=== PATIENT | female | born 1970 | race Caucasian/White ===

== ENCOUNTER 2022-07-06 08:04 | Emergency (ER) | payer OTHER, SELFPAY ==
[2022-07-06] VITALS (26 sets, daily range): BP systolic 127–154; BP diastolic 76–101; PULSE 58–72; RESP 18; TEMP 36.7; O2SAT 94–100; BMI 32.6
--- NOTE | 2022-07-06 08:46 | ED.CHESTPAIN ---
HPI - Chest Pain General Chief Complaint: Chest Pain Stated Complaint: Chest pain Time Seen by Provider: 07/06/22 08:43 History of Present Illness HPI narrative: This 51-year-old female comes in reporting chest pain that began at 6:00 p.m. last evening, 15 hours ago. She states that the pain is been constant and seems to be worse this morning. The pain is located along her sternum. It is not reproducible with deep breathing or certain movements. She states that she had some nausea last evening and the chest pain began. She did take a Zofran without any relief. She states that she has had some associated shortness of breath and lightheadedness when walking in to work. She works at this facility. She was tested last evening for COVID, influenza, and RSV and these returned negative. She does not report any cough. She states that she has good exercise tolerance and works out pretty much every day. She does have family history of heart disease and states that her calcium score of a heart scan was elevated in the left vasculature. The score was 12. She has not had any diaphoresis. Related Data Home Medications Medication Instructions Recorded Confirmed aspirin 81 mg chewable tablet 81 mg PO QDAY 02/28/22 (Aspirin Childrens) fexofenadine 180 mg tablet 180 mg PO QDAY 02/28/22 07/06/22 multivitamin 1 tab PO QDAY 02/28/22 ondansetron HCl 4 mg tablet 4 mg PO Q6H PRN 02/28/22 aspirin 81 mg tablet,delayed 81 mg PO QDAY 05/03/22 07/06/22 release fexofenadine 60 mg tablet (Mckenna 60 mg PO BID 05/03/22 05/03/22 Allergy) triamterene 37.5 1 tab PO 05/03/22 05/03/22 mg-hydrochlorothiazide 25 mg tablet Previous Rx's Medication Instructions Recorded lisinopril 10 mg tablet 10 mg PO QDAY #30 tabs 03/28/22 triamterene 37.5 2 cap PO QDAY #180 caps 07/02/22 mg-hydrochlorothiazide 25 mg capsule Allergies Allergy/AdvReac Type Severity Reaction Status Date / Time No Known Allergies Allergy Unverified 02/26/22 10:52 Review of Systems Status of ROS Reports: 10 or more systems reviewed and unremarkable except as noted in History and below Narrative Constitutional: No fevers, no weight gain or loss. Eyes: No discharge. No vision changes. HENT: No congestion, no sore throat, no ear pain. Cardiovascular: No palpitations. Chest pain as described above. Respiratory: No shortness of breath, no wheezes, no cough. Gastrointestinal: No abdominal pain, no vomiting, no diarrhea. She did have some nausea. Genitourinary: No dysuria, no hematuria. Musculoskeletal: Normal range of motion. Skin: No rashes, no pruritis. Neurological: No dizziness, weakness, sensory change, speech change. Endo/Heme/Allergies: No bruising or bleeding. No polydipsia. Pysch: no suicidality, no anxiety, no insomnia. All other systems reviewed and are negative. [facility] Medical History (Updated 07/06/22 @ 13:19 by Jerry Marshall MD) Encounter for annual physical exam Social History Smoking Status: Former smoker How often do you have a drink containing alcohol: monthly or less How often do you have six or more drinks on one occasion: Never AUDIT-C Alcohol total score: 1 Non-prescribed substance use: denies use Exam Narrative Exam Narrative: Constitutional: Well-developed, well-nourished, no acute distress. HEENT: Normocephalic, atraumatic. Neck: Normal range of motion. Nontender. Supple. Heart: Regular. No murmurs. Normal rate. Intact distal pulses. Lungs: Clear to auscultation. No wheezes, rhonchi, or rales. Chest: Chest discomfort along the sternum that is not reproducible with palpation or deep breathing. She rates that at 7/10 in severity. Abdomen: Normal bowel sounds. Nontender. No rebound tenderness. Genitalia: Deferred. Back: No midline tenderness. Normal range of motion. Extremities: Normal range of motion. No injury. Skin: Intact. No rash. Warm. No erythema or pallor. Neurologic: No altered sensation. No weakness. Alert and oriented. Psychiatric: No suicidality. No anxiety or depression. No insomnia. Nursing notes and vitals signs are reviewed. Const Vital Signs, click to edit/add: Vital Signs - 24 hr 07/06/22 08:18 07/06/22 08:20 07/06/22 08:22 Temperature 98.1 F Pulse Rate 67 70 Pulse Rate [Pulse Oximeter] 69 Respiratory Rate 18 Blood Pressure 154/97 H Blood Pressure [Right Upper Arm] 154/97 H Pulse Oximetry 99 100 99 Oxygen Delivery Method Room Air 07/06/22 08:30 07/06/22 08:32 07/06/22 09:00 Temperature Pulse Rate 68 65 65 Pulse Rate [Pulse Oximeter] Respiratory Rate Blood Pressure 135/92 H Blood Pressure [Right Upper Arm] Pulse Oximetry 99 100 98 Oxygen Delivery Method 07/06/22 09:02 07/06/22 09:03 07/06/22 09:30 Temperature Pulse Rate 64 71 63 Pulse Rate [Pulse Oximeter] Respiratory Rate Blood Pressure 148/101 H Blood Pressure [Right Upper Arm] Pulse Oximetry 98 98 96 Oxygen Delivery Method 07/06/22 09:32 07/06/22 10:00 07/06/22 10:02 Temperature Pulse Rate 65 60 58 L Pulse Rate [Pulse Oximeter] Respiratory Rate Blood Pressure 153/95 H 149/77 H Blood Pressure [Right Upper Arm] Pulse Oximetry 98 99 97 Oxygen Delivery Method 07/06/22 10:30 07/06/22 10:32 07/06/22 10:33 Temperature Pulse Rate 63 67 70 Pulse Rate [Pulse Oximeter] Respiratory Rate Blood Pressure 141/76 H Blood Pressure [Right Upper Arm] Pulse Oximetry 96 99 97 Oxygen Delivery Method 07/06/22 11:00 07/06/22 11:02 07/06/22 11:30 Temperature Pulse Rate 71 65 58 L Pulse Rate [Pulse Oximeter] Respiratory Rate Blood Pressure 127/92 H Blood Pressure [Right Upper Arm] Pulse Oximetry 94 95 98 Oxygen Delivery Method 07/06/22 11:32 07/06/22 11:33 07/06/22 12:02 Temperature Pulse Rate 61 65 Pulse Rate [Pulse Oximeter] Respiratory Rate Blood Pressure 131/97 H 150/81 H Blood Pressure [Right Upper Arm] Pulse Oximetry 97 95 Oxygen Delivery Method 07/06/22 12:03 07/06/22 12:30 07/06/22 12:32 Temperature Pulse Rate 58 L 72 64 Pulse Rate [Pulse Oximeter] Respiratory Rate Blood Pressure 147/93 H Blood Pressure [Right Upper Arm] Pulse Oximetry 98 99 97 Oxygen Delivery Method 07/06/22 13:00 07/06/22 13:02 Temperature Pulse Rate 67 68 Pulse Rate [Pulse Oximeter] Respiratory Rate Blood Pressure 149/98 H Blood Pressure [Right Upper Arm] Pulse Oximetry 99 99 Oxygen Delivery Method Course Vital Signs Vital signs: Initial Vital Signs Temperature 98.1 F 07/06/22 08:18 Temperature Source Temporal Artery Scan 07/06/22 08:18 Pulse Rate 69 07/06/22 08:18 Respiratory Rate 18 07/06/22 08:18 Blood Pressure 154/97 H 07/06/22 08:18 Blood Pressure Mean 116 07/06/22 08:18 Blood Pressure Position Supine 07/06/22 08:18 Pulse Oximetry 99 07/06/22 08:18 Oxygen Delivery Method 07/06/22 08:18 Vital Signs Temperature 98.1 F 07/06/22 08:18 Pulse Rate 69 07/06/22 08:18 Respiratory Rate 18 07/06/22 08:18 Blood Pressure 154/97 H 07/06/22 08:18 Pulse Oximetry 99 07/06/22 08:18 Oxygen Delivery Method 07/06/22 08:18 Temperature 98.1 F 07/06/22 08:18 Pulse Rate 68 07/06/22 13:02 Respiratory Rate 18 07/06/22 08:18 Blood Pressure 149/98 H 07/06/22 13:02 Pulse Oximetry 99 07/06/22 13:02 Oxygen Delivery Method 07/06/22 08:18 MDM - Chest Pain MDM Narrative Medical decision making narrative: This patient comes in with chest symptoms as described above. Her EKG and labs returned with reassuring findings. Her troponin is within normal range. A CT scan of the chest, abdomen, and pelvis with contrast is ordered and rules out dissection, pulmonary embolism, or other abnormalities. Patient is reassured with these results. She states that she does take Tums on occasion for heartburn symptoms. She does also have Prilosec at home but has not taken this. I did advise her to use this as directed. Lab Data Labs: Lab Results 07/06/22 07/06/22 07/06/22 Range/Units 08:59 09:08 09:08 WBC 7.48 (4.50-11.00) K/uL RBC 4.44 (4.00-5.20) m/uL Hgb 12.8 (12.0-16.0) gm/dL Hct 38.6 (33.0-51.0) % MCV 87 (80-100) fL MCH 29 (26-34) pg MCHC 33 (32-36) gm/dL RDW Coeff of Josep 13.1 (11.5-15.5) % Plt Count 294 (140-440) K/uL Neut % (Auto) 65.5 (42.0-72.0) % Lymph % (Auto) 25.7 (20-44) % Gosper % (Auto) 5.2 (0.0-11.0) % Eos % (Auto) 3.5 (0.0-7.0) % Baso % (Auto) 0.1 (0.0-3.0) % Neut # (Auto) 4.90 (1.7-7.0) K/uL Lymph # (Auto) 1.92 (0.90-2.90) K/uL Gosper # (Auto) 0.40 (0.00-0.90) K/UL Eos # (Auto) 0.26 (0.00-0.50) K/uL Baso # (Auto) 0.01 (0.00-0.30) K/uL Abs Immat Gran (auto) 0.00 (0.00-0.30) K/uL Imm/Tot Granulo (auto) 0.0 % ESR 28 H (2-20) mm/hr Sodium (135-149) mmol/L Potassium (3.6-5.1) mmol/L Chloride (96-114) mmol/L Carbon Dioxide (20-32) mmol/L BUN (7-30) mg/dL Creatinine (0.5-1.5) mg/dL Estimated Creat Clear Estimated GFR ml/min Glucose (60-115) mg/dL Calcium (8.4-10.6) mg/dL POC Troponin I 0.01 (0.01-0.04) ng/ml 07/06/22 Range/Units 09:08 WBC (4.50-11.00) K/uL RBC (4.00-5.20) m/uL Hgb (12.0-16.0) gm/dL Hct (33.0-51.0) % MCV (80-100) fL MCH (26-34) pg MCHC (32-36) gm/dL RDW Coeff of Josep (11.5-15.5) % Plt Count (140-440) K/uL Neut % (Auto) (42.0-72.0) % Lymph % (Auto) (20-44) % Gosper % (Auto) (0.0-11.0) % Eos % (Auto) (0.0-7.0) % Baso % (Auto) (0.0-3.0) % Neut # (Auto) (1.7-7.0) K/uL Lymph # (Auto) (0.90-2.90) K/uL Gosper # (Auto) (0.00-0.90) K/UL Eos # (Auto) (0.00-0.50) K/uL Baso # (Auto) (0.00-0.30) K/uL Abs Immat Gran (auto) (0.00-0.30) K/uL Imm/Tot Granulo (auto) % ESR (2-20) mm/hr Sodium 139 (135-149) mmol/L Potassium 3.9 (3.6-5.1) mmol/L Chloride 101 (96-114) mmol/L Carbon Dioxide 32 (20-32) mmol/L BUN 26 (7-30) mg/dL Creatinine 1.2 (0.5-1.5) mg/dL Estimated Creat Clear 47.89 Estimated GFR 55 ml/min Glucose 97 (60-115) mg/dL Calcium 9.6 (8.4-10.6) mg/dL POC Troponin I (0.01-0.04) ng/ml Imaging Data CT Chest, Abd, Pelvis: Radiologist's impression: 1. No aortic dissection or aortic aneurysm. 2. Normal caliber main pulmonary artery without central PE. 3. No cause of chest pain identified. ECG Data Attestation: I personally reviewed and interpreted this ECG as follows: Interpretation: Normal sinus rhythm. Rate is 72 beats per minute. There are no ST or T-wave abnormalities. Discharge Plan Discharge Clinical Impression: Atypical chest pain Patient Disposition: Home, Self-Care Condition: Improved Additional Instructions: Use [id number] medicines as needed and directed. Take Prilosec for symptomatic relief. Follow up with MD or return if worsening. Prescriptions: No Action aspirin 81 mg tablet,delayed release (DR/EC) 81 mg PO QDAY fexofenadine [Mckenna Allergy] 60 mg tablet 60 mg PO BID triamterene-hydrochlorothiazid 37.5-25 mg tablet 1 tab PO Label Comments: TAKE 2 TABLETS BY MOUTH EVERY DAY fexofenadine 180 mg tablet 180 mg PO QDAY multivitamin Tablet 1 tab PO QDAY aspirin [Aspirin Childrens] 81 mg tablet,chewable 81 mg PO QDAY ondansetron HCl 4 mg tablet 4 mg PO Q6H PRN lisinopril 10 mg tablet 10 mg PO QDAY Qty: 30 1RF triamterene-hydrochlorothiazid 37.5-25 mg capsule 2 cap PO QDAY Qty: 180 0RF Follow Up/Referrals: Teja Willard MD [Primary Care Provider] - Stand Alone Forms: [facility] Info Instructions
--- NOTE | 2022-07-06 08:58 | CRLHL7_ITS ---
For Patients: As a result of the 21st Century Cures Act, medical imaging exams and procedure reports are released immediately into your electronic medical record. You may view this report before your referring provider. If you have questions, please contact your health care provider. Examination: CTA chest/abdomen/pelvis Indication: Chest pain radiating to back. Technique: Dissection protocol CT with noncontrast chest CT and arterial phase chest abdomen/pelvis CT. 95 mL of Isovue 370. Coronal and sagittal reformations. DLP = 1554 mGy centimeter. Comparison: None available Findings: Vascular: No intramural hematoma. Normal course and caliber of the thoracic aorta. Three vessel aortic arch. No atherosclerosis. Normal caliber main pulmonary artery. This study is not protocol to evaluate for PE, but there is no large central PE identified. Normal heart size. No coronary artery calcifications. Celiac trunk, SMA, bilateral renal arteries, and HAYES widely patent. Abdominal aorta demonstrates no aneurysm and minimal atherosclerosis. Common, internal common external iliac arteries are widely patent. Nonvascular: Mediastinum: No pericardial effusion. Normal esophagus. No mediastinal adenopathy. Lungs: Central airways patent. Pleural spaces clear. No pulmonary opacities. No pulmonary nodules. Other chest: No axillary or supraclavicular adenopathy. Visualized portions of thyroid normal. Arterial phase of enhancement limits evaluation of solid abdominal organs. Liver: Normal. Gallbladder: Normal. Spleen: Normal. Pancreas: Normal. Adrenal glands: Normal. Kidneys: No hydronephrosis. No enhancing renal mass. Bowel: No obstruction or ileus. No wall thickening. Normal appendix. No free air or free fluid. Lymph nodes: No adenopathy. Pelvis: Urinary bladder is unremarkable. Uterus and ovaries unremarkable. Bones: No acute or aggressive appearing osseous lesions. Impression: 1. No aortic dissection or aortic aneurysm. 2. Normal caliber main pulmonary artery without central PE. 3. No cause of chest pain identified. Please note that all CT scans at this facility use dose modulation, iterative reconstruction, and/or weight-based dosing when appropriate to reduce radiation dose to as low as reasonably achievable. Dictated by Cuauhtemoc Ferro MD @ 07/06/2022 12:32:14 PM (Electronically Signed)
[2022-07-06 09:18] LABS: Basophils Absolute Auto 0.01 K/uL (0.00-0.30); Basophils Percent Auto 0.1 % (0.0-3.0); Eosinophils Absolute Auto 0.26 K/uL (0.00-0.50); Eosinophils Percent Auto 3.5 % (0.0-7.0); Hematocrit 38.6 % (33.0-51.0); Hemoglobin* 12.8 gm/dL (12.0-16.0); Lymphocytes Absolute Auto 1.92 K/uL (0.90-2.90); Lymphocytes Percent Auto 25.7 % (20-44); Mean Corpuscular HGB Conc 33 gm/dL (32-36); Mean Corpuscular Hemoglobin 29 pg (26-34); Mean Corpuscular Volume 87 fL (80-100); Monocytes Percent Auto 5.2 % (0.0-11.0); Neutrophils Percent Auto 65.5 % (42.0-72.0); Platelet Count* 294 K/uL (140-440); RDW Coefficient of Variation % 13.1 % (11.5-15.5); Red Blood Count 4.44 m/uL (4.00-5.20); White Blood Count* 7.48 K/uL (4.50-11.00)
[2022-07-06 09:22] LABS: Slide Review Reflex No
[2022-07-06 09:22] LABS: Troponin, Point-of-Care* 0.01 ng/ml (0.01-0.04)
[2022-07-06 09:30] LABS: Chloride* 101 mmol/L (96-114); Potassium* 3.9 mmol/L (3.6-5.1); Sodium* 139 mmol/L (135-149)
[2022-07-06] MEDS: ONDANSETRON 2 MG/ML inj 4 MG IVP (09:30)
[2022-07-06 09:33] LABS: Carbon Dioxide* 32 mmol/L (20-32); Creatinine* 1.2 mg/dL (0.5-1.5); Est. Creatinine Clearance* 47.89; Estimated Glomerular Filt Rate 55 ml/min
[2022-07-06 09:34] LABS: Blood Urea Nitrogen* 26 mg/dL (7-30); Calcium* 9.6 mg/dL (8.4-10.6); Glucose* 97 mg/dL (60-115)
[2022-07-06 10:30] LABS: Erythrocyte SedimentationRate* 28 mm/hr (2-20)
== END 2022-07-06 13:25 | disposition home or self-care (01) ==
PROVIDERS: Emergency Provider Emergency Medicine Emergency Medical Services; PCP Family Medicine
DX: R07.9 Chest pain, unspecified (principal)
CPT/HCPCS: 36415; 71270; 74177; 80048; 84484; 85025; 85651; 93005; 96374; 99285; J2405; Q9967

== ENCOUNTER 2022-10-09 14:27 | Outpatient (CLI) | payer OTHER, SELFPAY | END 2022-10-09 14:28 | disposition home or self-care (01) | LOC: LKVREF 14:31 | PROVIDERS: PCP Family Medicine; Visit Provider Family Medicine | DX: Z00.00 Encounter for general adult medical examination without abnormal findings (principal); I10 Essential (primary) hypertension; R93.1 Abnormal findings on diagnostic imaging of heart and coronary circulation | CPT/HCPCS: 84443 ==

== ENCOUNTER 2022-10-18 13:49 | Outpatient (CLI) | payer OTHER, SELFPAY ==
[2022-10-18 14:53] VITALS: BP 138/86; PULSE 99; RESP 18
[2022-10-18] MEDS: PERFLUTREN LIPID MICROSPHERES 2 ML VIAL IV (14:59)
--- NOTE | 2022-10-18 16:22 | W.PM.STED ---
Stress Test Note Date Time Seen by Provider: 14:45 Date Seen: 10/18/22 Date of test: 10/18/22 Providers Referring provider: Teja Willard Primary care provider: Teja Willard Stress test physician: Jodie Evans Stress Test Note Stress test ordered: Stress Echo Indication for test: Chest pain Stress test medicine: Definpresley Results discussion: Resting EKG: Sinus rhythm, 64 beats per minute. Resting blood pressure: 115/76 Stress test: Patient exercised on the treadmill following standard [place] protocol stress echo. She exercised to 10 minutes 47 seconds achieving 12.1 Mets. Maximum heart rate of 157 beats per minute was obtained which was 109% of a calculated target heart rate of 143. Maximal blood pressure during exercise was 144/80 giving a rate pressure product of 19,440. Definity was used for the echo images. There were no arrhythmias, no noted ischemic change. Patient had no chest pain. Stress test was terminated for patient having exercise-induced shortness of breath and meeting her heart rate requirements. Await echo images to couple this for a full formal diagnostic. Impression: Subjectively and objectively negative EKG portion of this stress test. Follow up suggested: Patient discharged home to await a final report from her primary care provider.
== END 2022-10-18 13:50 | disposition home or self-care (01) ==
LOC: STRESS 13:50
PROVIDERS: PCP Family Medicine; Visit Provider Family Medicine
DX: R07.89 Other chest pain (principal); I10 Essential (primary) hypertension; R93.1 Abnormal findings on diagnostic imaging of heart and coronary circulation
CPT/HCPCS: 93016; 93325; 93351; Q9957

== ENCOUNTER 2022-11-05 04:57 | Outpatient (CLI) | payer OTHER, SELFPAY ==
[2022-11-08 11:25] LABS: Chloride* 100 mmol/L (96-114); Potassium* 3.5 mmol/L (3.6-5.1); Sodium* 135 mmol/L (135-149)
[2022-11-08 11:28] LABS: Blood Urea Nitrogen* 28 mg/dL (7-30); Calcium* 9.3 mg/dL (8.4-10.6); Carbon Dioxide* 27 mmol/L (20-32); Creatinine* 1.2 mg/dL (0.5-1.5); Estimated Glomerular Filt Rate 54 ml/min; Glucose* 88 mg/dL (60-115)
== END 2022-11-05 04:58 | disposition home or self-care (01) ==
PROVIDERS: PCP Family Medicine; Visit Provider Family Medicine
DX: I10 Essential (primary) hypertension (principal); M54.9 Dorsalgia, unspecified
CPT/HCPCS: 36415; 80048

== ENCOUNTER 2022-12-04 13:58 | Outpatient (CLI) | payer OTHER, SELFPAY ==
--- NOTE | 2022-12-04 13:40 | CRLHL7_ITS ---
For Patients: As a result of the Cures Act, medical imaging exams and procedure reports are released immediately into your electronic medical record. You may view this report before your referring provider. If you have questions, please contact your health care provider. BILATERAL SCREENING MAMMOGRAM WITH COMPUTER-AIDED DETECTION AND TOMOSYNTHESIS TECHNIQUE: CC and MLO views were obtained. These mammographic images have been obtained using full-field digital technique. These mammographic images were interpreted with the benefit of computer-aided detection. Breast Tomosynthesis was used in this interpretation. COMPARISON FILM: 09/26/21, 10/02/21. FINDINGS: The breasts are heterogeneously dense, which may obscure small masses IMPRESSION: There is no radiographic evidence for malignancy. ASSESSMENT: BI-RADS Category 1: Negative RECOMMENDATION: Routine screening mammogram in 1 year. A lay language report of this examination will be provided to the patient. David Vernon M.D. Diagnostic Radiologist [email or web address] Transcribed: 1:19 p.mNick ritter/Dictated by: David Vernon MD @ 12/05/2022 11:52:00 AM (Electronically Signed)
== END 2022-12-04 13:59 | disposition home or self-care (01) ==
LOC: MAMMO 13:59
PROVIDERS: PCP Family Medicine; Visit Provider Family Medicine
DX: Z12.31 Encounter for screening mammogram for malignant neoplasm of breast (principal); R92.2 Inconclusive mammogram
CPT/HCPCS: 77063; 77067

== ENCOUNTER 2023-04-29 14:22 | Outpatient (CLI) | payer OTHER, SELFPAY | END 2023-04-29 14:23 | disposition home or self-care (01) | LOC: LKVREF 14:23 | PROVIDERS: PCP Family Medicine; Visit Provider Family Medicine | DX: Z00.00 Encounter for general adult medical examination without abnormal findings (principal); I10 Essential (primary) hypertension; R93.1 Abnormal findings on diagnostic imaging of heart and coronary circulation; E66.9 Obesity, unspecified; Z13.6 Encounter for screening for cardiovascular disorders | CPT/HCPCS: 80061 ==

== ENCOUNTER 2023-05-29 09:15 | Outpatient (RCR) | payer OTHER, SELFPAY | END 2023-09-26 23:59 | disposition home or self-care (01) | PROVIDERS: PCP Preventive Medicine Occupational Medicine; Visit Provider Nurse Practitioner Family | DX: H81.90 Unspecified disorder of vestibular function, unspecified ear (principal); R26.89 Other abnormalities of gait and mobility; Z51.89 Encounter for other specified aftercare | CPT/HCPCS: 97112; 97161; 97162 ==

== ENCOUNTER 2023-06-18 13:47 | Outpatient (CLI) | payer OTHER, SELFPAY | END 2023-06-18 13:48 | disposition home or self-care (01) | PROVIDERS: PCP Family Medicine; Visit Provider Otolaryngology | DX: Z11.9 Encounter for screening for infectious and parasitic diseases, unspecified (principal) | CPT/HCPCS: 85651; 86039; 86431; 86618 ==

== ENCOUNTER 2023-07-03 12:50 | Outpatient (CLI) | payer OTHER, SELFPAY ==
--- NOTE | 2023-07-03 13:00 | CRLHL7_ITS ---
For Patients: As a result of the Century Cures Act, medical imaging exams and procedure reports are released immediately into your electronic medical record. You may view this report before your referring provider. If you have questions, please contact your health care provider. INDICATION: Vertigo. Dizziness. TECHNIQUE: Multiplanar multisequence MR imaging acquired through the brain and internal auditory canals prior to and following intravenous contrast. COMPARISON: None. FINDINGS: The ventricles and sulci are within normal limits for patient age. No mass effect or midline shift. Few punctate FLAIR hyperintensities in the supratentorial white matter, nonspecific. No intracranial hemorrhage or pathologic extra-axial fluid collection. No diffusion restriction to suggest acute infarction. Elongated enhancement and FLAIR hyperintensity within the lateral left hemipons measuring up to 13 mm (series 12, image 11). No associated mass effect. Probable developmental venous anomaly within the superior right dorsal hemipons. Patchy and linear enhancement within the inferomedial right cerebellar hemisphere (series 10 image 9) may represent an additional developmental venous anomaly. No mass or pathologic enhancement within the internal auditory canals or cerebellopontine angles. No concerning signal abnormalities in the inner ear structures. No vascular loop within the internal auditory canals. The major arterial flow voids of the skullbase are preserved. The globes are symmetric. The paranasal sinuses are well aerated. The mastoid air cells are clear. IMPRESSION: 1. Small elongated enhancement in the lateral left hemipons is without associated mass effect or parenchymal edema and indeterminate. Differential considerations are broad, though include vascular, inflammatory/demyelinating, or neoplastic processes. An enhancing late subacute to chronic infarction could also have this appearance. Follow-up brain MRI within 3 months is recommended for reassessment. Sequences acquisition utilizing thin section volumetric postcontrast images would be helpful. 2. Probable developmental venous anomaly within the superior right dorsal hemipons. Patchy and linear enhancement within the inferomedial right cerebellar hemisphere may represent an additional developmental venous anomaly, and can be reassessed on follow-up exams. 3. No mass or pathologic enhancement within the internal auditory canals or cerebellopontine angles. Dictated by Jerome Montana MD @ 07/03/2023 7:18:10 PM (Electronically Signed)
== END 2023-07-03 12:51 | disposition home or self-care (01) ==
LOC: MRI 12:50
PROVIDERS: PCP Family Medicine; Visit Provider Otolaryngology
DX: R42 Dizziness and giddiness (principal); G93.9 Disorder of brain, unspecified
CPT/HCPCS: 70553; A9575

== ENCOUNTER 2023-10-07 16:42 | Outpatient (REF) | payer OTHER, SELFPAY ==
[2023-10-07 16:51] LABS: Partial Thromboplastin Time* 31 Seconds (23-33)
== END 2023-10-07 16:43 | disposition home or self-care (01) ==
LOC: NPLBINS 16:42
PROVIDERS: PCP Family Medicine; Visit Provider Psychiatry & Neurology Neurology
DX: Z00.00 Encounter for general adult medical examination without abnormal findings (principal); I10 Essential (primary) hypertension; E78.00 Pure hypercholesterolemia, unspecified; E66.9 Obesity, unspecified
CPT/HCPCS: 36415; 80053; 80061; 85730

== ENCOUNTER 2023-12-18 14:08 | Outpatient (CLI) | payer OTHER, SELFPAY ==
--- NOTE | 2023-12-18 14:00 | MM_ITS ---
Patient: MICHEAL GALICIA Facility:?[facility] Patient ID:?[id number] Site Patient ID:?[id number]. Site :?[id number] Study:?XRay-Breast Bilateral 3D W/CAD-12/18/2023 2:31:27 PM Ordering Physician:Teja Nugent Final Report: BILATERAL SCREENING MAMMOGRAM WITH COMPUTER-AIDED DETECTION AND TOMOSYNTHESIS TECHNIQUE: CC and MLO views were obtained. These mammographic images have been obtained using full-field digital technique. These mammographic images were interpreted with the benefit of computer-aided detection. Breast Tomosynthesis was used in this interpretation. COMPARISON FILM: 12/04/22, 10/02/21, 09/26/21. FINDINGS: There are scattered areas of fibroglandular density. IMPRESSION: There is no radiographic evidence for malignancy. ASSESSMENT: BI-RADS Category 1: Negative RECOMMENDATION: Routine screening mammogram in 1 year. A lay language report of this examination will be provided to the patient. David Vernon M.D. Diagnostic Radiologist [email or web address] DSM/sp R& Transcribed: 2:07 p.m. SP/Dictated by: David Vernon MD @ 12/19/2023 9:12:00 AM Signed by:?David Vernon MD @12/19/2023 3:10:43 PM (Electronic Signature)
== END 2023-12-18 14:09 | disposition home or self-care (01) ==
LOC: MAMMO 14:09
PROVIDERS: PCP Family Medicine; Visit Provider Family Medicine
DX: Z12.31 Encounter for screening mammogram for malignant neoplasm of breast (principal)
CPT/HCPCS: 77063; 77067

== ENCOUNTER 2025-04-01 09:00 | Outpatient (CLI) | payer OTHER, SELFPAY | END 2025-04-01 09:01 | disposition home or self-care (01) | LOC: NFLDREF 04-04 17:01 | PROVIDERS: PCP Family Medicine; Referring Provider Family Medicine; Visit Provider Family Medicine | DX: Z00.00 Encounter for general adult medical examination without abnormal findings (principal); I10 Essential (primary) hypertension | CPT/HCPCS: 80053; 80061 ==

== ENCOUNTER 2025-04-12 14:55 | Outpatient (CLI) | payer OTHER, SELFPAY ==
--- NOTE | 2025-04-12 15:00 | CRLHL7_ITS ---
For Patients: As a result of the Century Cures Act, medical imaging exams and procedure reports are released immediately into your electronic medical record. You may view this report before your referring provider. If you have questions, please contact your health care provider. INDICATION: BILATERAL SCREENING MAMMOGRAM, ASYMPTOMATIC 54 Y/O FEMALE COMPARISON: 12/18/2023, 12/04/2022, 10/02/2021 TECHNIQUE: Digital mammogram in CC and MLO projections including computer-aided detection (CAD) and tomosynthesis. BREAST COMPOSITION: There are scattered areas of fibroglandular density. FINDINGS: No suspicious findings. ASSESSMENT: BI-RADS 2 Benign RECOMMENDATION: Annual screening mammogram. A lay language report of this examination will be provided to the patient. Dictated by: David Vernon MD @ 04/13/2025 09:36:58 (Electronically Signed)
== END 2025-04-12 14:56 | disposition home or self-care (01) ==
LOC: MAMMO 14:56
PROVIDERS: PCP Family Medicine; Visit Provider Family Medicine
DX: Z12.31 Encounter for screening mammogram for malignant neoplasm of breast (principal)
CPT/HCPCS: 77063; 77067

== ENCOUNTER 2025-07-12 15:04 | Outpatient (CLI) | payer OTHER, SELFPAY | END 2025-07-12 15:05 | disposition home or self-care (01) | LOC: LKVREF 15:05 | PROVIDERS: PCP Family Medicine; Visit Provider Family Medicine | DX: I10 Essential (primary) hypertension (principal); E66.9 Obesity, unspecified; Z68.32 Body mass index [BMI] 32.0-32.9, adult; R42 Dizziness and giddiness; R53.83 Other fatigue; R93.1 Abnormal findings on diagnostic imaging of heart and coronary circulation; Z00.00 Encounter for general adult medical examination without abnormal findings; E10.9 Type 1 diabetes mellitus without complications | CPT/HCPCS: 80048; 82306; 84443 ==